=== PATIENT | female | born 1965 | race Asian ===

== ENCOUNTER 2017-04-07 12:47 | Emergency (ER) | payer OTHER ==
[~2017-04-07] VITALS: Ht 160 cm; Wt 78.0 kg
[2017-04-07 13:41] VITALS: BP 135/84
== END 2017-04-07 15:50 | disposition home or self-care (01) ==
LOC: ED 12:47
DX: R04.0 Epistaxis (principal); I10 Essential (primary) hypertension
CPT/HCPCS: J3490